=== PATIENT | male | born 1980 | race African-American/Black ===

== ENCOUNTER 2017-06-12 12:18 | Inpatient (IN) | payer SELFPAY ==
[~2017-06-12] VITALS: Ht 182.9 cm; Wt 117.9 kg
[2017-06-12] MEDS ORDERED: MORPHINE SULFATE 10 MG/ML CPJ IV ONE ×2 (14:30→15:30)
[2017-06-12] MEDS ORDERED: MORPHINE SULFATE 4 MG/ML CPJ (NOT FOR IM USE) IV ONE ×3 (14:30→16:15)
[2017-06-12] MEDS ORDERED: KETOROLAC 30MG/ML VIAL IV ONE (15:00)
[2017-06-12] MEDS ORDERED: HYDROMORPHONE HCL/PF 2MG/ML CPJ IV ONE (16:15)
[2017-06-12] MEDS ORDERED: HYDROMORPHONE HCL/PF 1MG/ML CPJ IV ONE (16:30)
[2017-06-12 16:59] LABS: CREATINE KINASE 413 IU/L (39-308)
[2017-06-12 17:00] LABS: TROPONIN I < 0.02 ng/mL (0.00-0.04)
[2017-06-12 18:20] LABS: BASOPHILS % 0.7 % (0.0-2.0); EOSINOPHILS % 1.3 % (0.0-5.0); HEMATOCRIT. 42.3 % (42.0-52.0); HEMOGLOBIN. 14.2 g/dL (14.0-18.0); LYMPHOCYTES % 22.3 % (20.0-50.0); MEAN CORPUSCULAR HEMOGLOBIN 29.9 pg (28.0-32.0); MEAN CORPUSCULAR VOLUME 88.7 fL (80.0-94.0); MEAN PLATELET VOLUME 9.4 fl (7.4-10.4); MONOCYTES % 11.1 % (2.0-8.0); NEUTROPHILS % 64.6 % (40.0-76.0); PLATELET 183 x1000/uL (130-400); RED BLOOD CELL COUNT 4.77 mill/uL (4.7-6.1); RED CELL DISTRIBUTION WIDTH 14.5 % (11.6-14.6)
[2017-06-12 18:24] LABS: CHLORIDE 103 mEq/L (98-107)
[2017-06-12 18:26] LABS: CARBON DIOXIDE 28 mEq/L (21-32)
[2017-06-12 18:29] LABS: PROTHROMBIN TIME 10.7 sec (9.4-11.6)
[2017-06-12 18:32] LABS: CREATINE KINASE 422 IU/L (39-308)
[2017-06-12 18:40] VITALS: BP 149/102
[2017-06-12] MEDS ORDERED: CLONIDINE 0.1MG TABLET PO PRN (19:00)
[2017-06-12] MEDS ORDERED: HYDROCODONE/ACETAMINOPHEN 5/325MG TABLET PO PRN (19:00)
[2017-06-12] MEDS ORDERED: ONDANSETRON HCL 4MG/2ML VIAL IV PRN (19:00)
[2017-06-12] MEDS: HYDROMORPHONE HCL/PF 2MG/ML CPJ IV PRN ×2 (19:25→21:43)
[2017-06-12 20:00] VITALS: BP 118/71
[2017-06-12] MEDS: DIPHENHYDRAMINE 50MG/ML VIAL IV PRN (20:07)
[2017-06-12 20:10] VITALS: BP 149/102
[2017-06-13] VITALS: BP 127/78
[2017-06-13] MEDS: DIPHENHYDRAMINE 50MG/ML VIAL IV PRN ×4 (01:25→21:21)
[2017-06-13 04:00] VITALS: BP 128/74
[2017-06-13 08:00] VITALS: BP 113/63
[2017-06-13 08:00] LABS: BASOPHILS % 0.5 % (0.0-2.0); HEMATOCRIT. 38.4 % (42.0-52.0); HEMOGLOBIN. 12.9 g/dL (14.0-18.0); LYMPHOCYTES % 20.4 % (20.0-50.0); MEAN CORPUSCULAR HEMOGLOBIN 29.8 pg (28.0-32.0); MEAN CORPUSCULAR VOLUME 88.6 fL (80.0-94.0); MEAN PLATELET VOLUME 10.2 fl (7.4-10.4); MONOCYTES % 13.1 % (2.0-8.0); PLATELET 165 x1000/uL (130-400); RED BLOOD CELL COUNT 4.34 mill/uL (4.7-6.1); RED CELL DISTRIBUTION WIDTH 14.1 % (11.6-14.6)
[2017-06-13] MEDS: HYDROMORPHONE HCL/PF 2MG/ML CPJ IV PRN ×4 (08:17→21:22)
[2017-06-13 08:43] LABS: CARBON DIOXIDE 28 mEq/L (21-32); CHLORIDE 102 mEq/L (98-107)
[2017-06-13 09:13] LABS: *AMPHETAMINES SCREEN URINE NEGATIVE (NEGATIVE); *BARBITURATES SCREEN URINE NEGATIVE (NEGATIVE); *BENZODIAZEPINES SCREEN URINE NEGATIVE (NEGATIVE); *COCAINE SCREEN URINE NEGATIVE (NEGATIVE); CANNABINOID URINE SCREEN PRESUMTIVE POSITIVE (NEGATIVE); METHADONE URINE SCREEN NEGATIVE (NEGATIVE); OPIATES URINE SCREEN PRESUMTIVE POSITIVE (NEGATIVE); PHENCYCLIDINE URINE SCREEN NEGATIVE (NEGATIVE)
[2017-06-13 11:47] VITALS: BP 100/56
[2017-06-13 16:00] VITALS: BP_SYST 124; BP_SYST 136; BP_DIAS 55; BP_DIAS 64
[2017-06-13 20:00] VITALS: BP 131/80
[2017-06-14] VITALS: BP 139/62
[2017-06-14] MEDS: HYDROMORPHONE HCL/PF 2MG/ML CPJ IV PRN ×4 (01:41→13:00)
[2017-06-14] MEDS: ACETAMINOPHEN 325MG TABLET PO PRN ×2 (01:51→12:35)
[2017-06-14 04:00] VITALS: BP 132/73
[2017-06-14] MEDS: DIPHENHYDRAMINE 50MG/ML VIAL IV PRN (07:52)
[2017-06-14 08:00] VITALS: BP 136/64
[2017-06-14 12:00] VITALS: BP 130/67
[2017-06-14 15:21] VITALS: BP 130/67
== END 2017-06-14 16:05 | disposition home or self-care (01) | DRG 342 ==
LOC: ER 12:18 → 6EST 17:29 → ENRESERV 17:57 → ER 18:30
PROVIDERS: ADMIT Hospitalist; ATTEND Hospitalist
DX: S92.001A Unspecified fracture of right calcaneus, initial encounter for closed fracture (principal); D72.829 Elevated white blood cell count, unspecified; F17.200 Nicotine dependence, unspecified, uncomplicated; V89.2XXA Person injured in unspecified motor-vehicle accident, traffic, initial encounter; Y92.410 Unspecified street and highway as the place of occurrence of the external cause; Y93.89 Activity, other specified; Y99.8 Other external cause status
CPT/HCPCS: 29515; 36415; 73610; 73630; 73700; 80048; 80053; 80305; 82550; 84484; 85025; 85610; 93005; 96374; 96375; 99285; J1170; J1200; J1885; J2270